=== PATIENT | female | born 1945 | race Caucasian/White ===

== ENCOUNTER 2018-09-08 14:14 | Inpatient (IN) | payer OTHER ==
[~2018-09-08] VITALS: Ht 165.1 cm; Wt 137.9 kg
--- NOTE | 2018-09-08 15:40 | NUR ---
1430: Admitted to room 519-B via [facility] by EMT transport. Pt alert, oriented x3, tearful but pleasant and cooperative, initial admission assessment completed. Welcome packet, consents and policy and procedures reviewed with pt, consents signed. Personal inventory completed and verified with pt. (Antoine) here, information for four number security code given to , phone number for unit and restrictions for clothing, visiting and items to be kept with pt. took pts blue purse with contents home with him per pts request. VS=97.5-94-18, 151/74, O2SAT 98% on RA. See admission process interventions for assessment. Dr. Orellana here to see pt and complete admission assessment.
[2018-09-08 16:05] VITALS: BP 151/74
[2018-09-08] MEDS ORDERED: TYLENOL EXTRA500 MG PO (16:40)
[2018-09-08] MEDS ORDERED: ALBUTEROL2.5 MG/0.5 INH (16:44)
[2018-09-08] MEDS ORDERED: ALPRAZOLAM 0.0.25 M1 PO (16:47)
[2018-09-08] MEDS ORDERED: BISOPROLOL FUMAR5 MG PO ×2 (16:48→17:10)
[2018-09-08] MEDS ORDERED: CETIRIZINE-PSE1 EACH PO (16:49)
[2018-09-08] MEDS ORDERED: SYNTHROID50 MCG PO (16:51)
[2018-09-08] MEDS ORDERED: LISINOPRIL5 MG PO ×2 (16:52→17:12)
[2018-09-08] MEDS ORDERED: METFORMIN HCL500 MG PO (16:53)
[2018-09-08] MEDS ORDERED: ZOFRAN 4 MG ORAL4 MG SUBLING (16:56)
[2018-09-08] MEDS ORDERED: MIRALAX17 GM PO (17:01)
[2018-09-08] MEDS ORDERED: XANAX 0.25 MG0.25 MG PO (17:06)
[2018-09-08] MEDS ORDERED: ZYRTEC10 M5 PO (17:11)
[2018-09-08] MEDS ORDERED: ONDANSETRON HCL4 M2 SUBLING (17:14)
[2018-09-08 19:20] VITALS: BP 133/78
--- NOTE | 2018-09-09 01:04 | NUR ---
Care assumed of patient at 1900: Patient pleasant and cooperative. Patient tearful when speaking about her granddaughter and missing her. States that she is the reason she did not attempt to commit suicide. Denies SI at this time. Reports that she does feel depressed and wants to feel better. Patient reports that she takes Metformin 1,000mg po BID at home. LOGAN Torrez, notified. Order obtained to correct admin instructions. Patient blood sugar 195 this PM and required 3 units Lispro. Patient very worried about her blood sugars, stating that she had never checked her blood sugar before and only took po medication. Education completed on diabetes. Patient is to have HgbA1C drawn this AM. Assured patient that we would have more answers in the AM regarding diabetes care plan for her. Patient is currently sitting in recliner in her room. States that she sleeps in recliner at home and would sleep better in recliner.
[2018-09-09 05:28] LABS: HEMATOCRIT 33.9 % (37.0-47.0); HEMOGLOBIN 11.1 gm/dL (12.0-15.0); MCH 29.2 pg (26.0-34.0); MCHC 32.8 g/dL (28.0-37.0); MCV 89.1 fL (80.0-100.0); RBC 3.81 mil/uL (4.20-5.00); RDW 14.4 % (10.5-14.5)
[2018-09-09 05:42] LABS: CALCIUM 9.7 mg/dL (8.5-10.1); CREATININE 1.2 mg/dL (0.6-1.0); POTASSIUM 4.3 mmol/L (3.5-5.1)
[2018-09-09 07:48] VITALS: BP 111/63
--- NOTE | 2018-09-09 07:50 | NUR ---
0700: Report rec from noc shift, care assume. 0745: Up ad gregg in room, independent with ADL's and toileting. Denies SI, pleasant with staff, tearful at times, attempts to be positive.
[2018-09-09 20:12] VITALS: BP 108/59
--- NOTE | 2018-09-09 20:32 | NUR ---
ASSUMED CARE @ 1900. IN DAY ROOM SITTING AT TABLE WATCHING TV AND OBSERVING PEERS AND STAFF. A&OX4. TSH LABS RETURNED 4.415 AND LEVOTHYROXINE INCREASED TO 75MCG. FSBS 115 @ 19:16, NO SLIDING SCALE INSULIN REQUIRED. AMABULATES AD TACHO WITH CANE. PLEASANT AFFECT, DENIES BACK PAIN AT THIS TIME, REPORTS PAIN IS MORE PRONOUNCED IN THE A.M. WILL CONTINUE TO MONITOR.
--- NOTE | 2018-09-09 23:39 | NUR ---
DENIES NEED OR DESIRE FOR ATIVAN FOR ANXIETY. RECLINED IN CHAIR TO SLEEP. WILL CONTINUE TO MONITOR Q 12 MINUTES FOR PATIENT SAFETY.
[2018-09-10 00:10] LABS: GLYCOHEMOGLOBIN (HGB A1C) 7.8 % (4.8-5.6)
[2018-09-10 07:00] VITALS: BP 105/51
--- NOTE | 2018-09-10 07:55 | NUR ---
PT UP IN DINNING ROOM WITH CANE. PT HAS SMALL BRUISE TO RT FORARM. PT LUNGS CEAR. PT COMPLAINS OF SMALL AMOUNT OF PAIN TO LOWER BACK WHEN GETTING UP OUT OF BED. PT ASKING ALOT OF QUESTIONS ABOUT WHEN IS SHE GOING TO SEE THE DR, AND WHEN IS SHE GOING HOME.
[2018-09-10 08:00] VITALS: BP 105/51
--- NOTE | 2018-09-10 10:07 | H ---
[facility] [place] [address] [place] [address] HISTORY AND PHYSICAL Name: RADHA HAYDEN Room #: 519B-B ADM IN M.R.#: [id number] Admission: 09/08/18 ������������������ Attend Phys: Gabriel Orellana DO Discharge: ������������������ Date of : 45 Report #: [id number] THIS REPORT FOR: //name// CC: [facility] DATE OF SERVICE: 09/08/2018 INPATIENT PSYCHIATRIC EVALUATION PRIMARY TEAM ATTENDING PHYSICIAN: Gabriel Orellana DO TOOL DISPATCHER: Elen Love M.D. REASON FOR ADMISSION: Suicidal ideation with intent, means, and plan. HISTORY OF PRESENT ILLNESS: This is a 73-year-old morbidly obese female who was brought by EMS to the [facility] Emergency Room. Apparently, her primary care physician called 911 due to her calling in with the concern that the patient was going to harm herself. The patient reported in the Emergency Room that she had thoughts of overdosing on her pain medications, stated that they were sure to kill her. She has had suicidal thoughts for the past 3 weeks. She stated she has felt more depressed and suicidal during that time. She acknowledged to me when I interviewed her roughly a month to month and a half ago that she had the passing of her brother. In addition, the patient currently has marital problems. She describes her as coming home, wanting to sit in the chair and go to sleep and not spend significant time with her. She states they have been for 25 years, it is the second marriage for her. The patient states as well she is estranged from her 2 daughters. She told the ER she needed people to leave her alone so she could take her meds and then it will be over with. Apparently, she took an overdose in the past, was hospitalized at [facility], and she told me this was roughly in 2004. Apparently, she is not taking antidepressants currently and it is not having any kind of outpatient psychiatric followup. She reports she cannot sleep at night and sleeps a total of about 4 hours per day. She eats but does not have a good appetite. She has chronic back, abdominal, and leg pain, including a gross hernia in her abdomen that she says cannot be operated on. She denied HI. Denies auditory, visual, or tactile hallucinations. Denied substance use. PAST MEDICAL HISTORY: Includes abdominal hernia, chronic abdominal pain, back and leg pain, and obesity. PAST SURGICAL HISTORY: Numerous, including back and abdomen, will not go further into that. [address] [address] HISTORY AND PHYSICAL Name: RADHA HAYDEN Room #: 519B-B ADM IN M.R.#: [id number] Admission: 09/08/18 ������������������ Attend Phys: Gabriel Orellana DO Discharge: ������������������ Date of : 45 Report #: [id number] SOCIAL HISTORY: Tobacco never used. Never smoked. Alcohol use denies. Denies sexual activity. FAMILY HISTORY: Includes in her father heart failure, asthma, heart attack, I am 15 myocardial infarctions in total, and total diabetes in her father. Diabetes in her sister. I believe her father has dementia, senile. Has another sister with hypertension. A sister with a cancer of the colon. High cholesterol in sister. High cholesterol in brother. Depression in brother. ALLERGIES: CODEINE ANAPHYLAXIS AND ITCHING, HYDROCODONE CAUSED RASH AND BLISTERS, MORPHINE ANAPHYLACTIC SHOCK, OXYCODONE BURNING RASH, DILAUDID AND HYDROMORPHONE CAUSES THE BOWELS TO BACK WITH IMPACTION, LIPITOR MUSCLE PAIN, ZETIA MUSCLE PAIN, LYRICA SWELLING, AMOXICILLIN STOMACH UPSET, NAUSEA, AND VOMITING. DEVELOPMENTAL HISTORY: Born and raised in [place], [place]. Started having kids around age 17. Completed high school and 1 year of college. PRIMARY CARE PHYSICIAN: Dr. Radha Garcia LABORATORY DATA: From [facility] includes a TSH of 7.42, it was 3.4 on 06/16/2008. Salicylate negative. Acetaminophen negative. Alcohol negative. All drug and toxic levels were negative. AST 14, ALT 15, alk phos 90. At , sodium 134, potassium 4.5, chloride 100, bicarbonate 25, anion gap 9, BUN 17, creatinine 0.99, GFR non- 55, glucose 187, albumin 2.6, calcium 9.8, total bilirubin 0.4, total protein 6.9. CBC: White count of 7.7, H and H 12.0 and 37.1, platelet count 310,000. PAST SURGICAL HISTORY: Includes a hysterectomy in 1975, appendectomy in 1975, carpal tunnel release in 1995, cholecystectomy in 1984, back surgery L2-L5 laminectomy at [facility] in 12/2001, joint placement of right knee in 2004, nerve damage back surgery in 2006 at L4-L5, knee arthroplasty 03/25/2016 the was done by Dr. Enzo Mascorro at , breast cyst excision right, history of dilation and curettage x3. Medical history is reviewed. The patient has a history of left posterior fossa meningioma that has not been resected at all, chronic renal failure stage 3, , chronic renal insufficiency, depression, diabetes mellitus, degenerative joint disease, environmental allergies. She has palpitations controlled by metoprolol, abdominal hernia from cholecystectomy incision, hypertension, hyperlipidemia, low back pain, metabolic syndrome, history of pneumonia, history of SVT on beta brendan, sees Dr. Eduardo, vision decreased corrective glasses, and also arthritis. OBJECTIVE: VITAL SIGNS: Additionally, vital signs here at [facility], [facility] [address] [place] [address] HISTORY AND PHYSICAL Name: RADHA HAYDEN Room #: 519B-B ADM IN M.R.#: [id number] Admission: 09/08/18 ������������������ Attend Phys: Gabriel Orellana, Discharge: ������������������ Date of : 45 Report #: [id number] temperature 36.4, pulse 94, respirations 18, BP 151/74, O2 sat 98% on room air. GENERAL: She uses a cane to ambulate. MENTAL STATUS EXAMINATION: This is a well-developed, well-nourished, morbidly obese female appearing her stated age. Attention intact. Concentration intact. Speech is normal in rate, volume and tone. Thought process linear and goal directed. Thought content focused on her current problems. No psychomotor agitation. No psychomotor retardation. Denied auditory, visual, or tactile hallucination. Endorsed suicidal ideation, plan, and intent. Denied homicidal ideation. Memory formally tested, but could not remember which medication she is on, I will follow this up when available tomorrow. Insight limited. Judgment limited. Fund of knowledge is average range. FORMULATION: A 73-year-old morbidly obese female being admitted for suicidal ideation. REVIEW OF SYSTEMS: From ER at : CONSTITUTIONAL: Negative. HEAD, EARS, NOSE AND THROAT: Negative. EYES: Negative. RESPIRATORY: Negative. CARDIOVASCULAR: Negative. GASTROINTESTINAL: Negative. ENDOCRINE: Negative. GENITOURINARY: Negative. MUSCULOSKELETAL: Negative. SKIN: Negative. NEUROLOGIC: Negative. PSYCHIATRIC: Reviewed above. Otherwise negative on 10-point review of systems. MEDICATIONS: Also, her outpatient medication list obtained from PCP: Metformin 1000 mg daily, MiraLax 17 grams daily, lisinopril 5 mg p.o. daily, levothyroxine 50 mcg p.o. daily, Zebeta 5 mg p.o. daily, alprazolam 0.25 mg q.6 hours p.r.n. Routine PRNs were given and Tylenol 650 q.6 p.r.n. was ordered for pain. PLAN: Evaluate, stabilize, obtain collateral. I think the patient would likely benefit from an SSRI. I will talk with her in more detail about that tomorrow. Certainly psychotherapy will need to be set up for the patient and we did have a family meeting as marital discord is not helping the situation. ESTIMATED LENGTH OF STAY: 5-10 days. STRENGTHS: She has family, , and a place to live. WEAKNESSES: Multiple medical problems and avoidance of psychiatric care for some time. [address] [address] HISTORY AND PHYSICAL Name: RADHA HAYDEN Room #: 519B-B ADM IN M.R.#: [id number] Admission: 09/08/18 ������������������ Attend Phys: Gabriel Orellana DO Discharge: ������������������ Date of : 45 Report #: [id number] Approximately 45 minutes spent on this case. ��������������������������������������������� <ELECTRONICALLY SIGNED> ���������������������������������������� By: Gabriel Orellana DO ��������������������������������������������� 09/10/18 1007 [id number] Gabriel Orellana DO /nt
--- NOTE | 2018-09-10 11:37 | NUR ---
Nutrition: pt request to see RD for weight loss/morbid obesity. BMI 50. Reports fair appetite and increased weight gain since brother passed 2 months ago. On carb controlled diet, hx DM. BG 115-160. Does not check sugars at home. Takes metformin. Reviewed basic principles for weight loss, pt was not appropriate for further education on diabetic diet. Became upset and frustrated stating she just wanted to go home. Physical activity is limited due to other health problems. Offered assistance in ordering meals, etc-pt refused. PO intake documented 30%/90%/100% of meals yesterday. Was able to obtain food preferences. Place as low risk.
--- NOTE | 2018-09-10 17:52 | NUR ---
CAME TO VISIT TODAY. PT DIDN'T WANT THE TURKEY MEAL, GAVE PT A SANDWICH BOX. PT EXCITED ABOUT GOING HOME TOMMORROW.
[2018-09-10 19:28] VITALS: BP 129/66
--- NOTE | 2018-09-10 22:30 | NUR ---
PT SITTING IN CHAIR IN HER ROOM. PT WAS ASKED ABOUT MORNING GOALS GROUP, SHE STATED SHE DID NOT ATTEND. PT STATED SHE MET HER GOAL TO GO HOME THE PLAN IS FOR TOMORROW. PT STATED HER MOOD HAS IMPROVED, THAT SHE HAS CHANGED HER THINKING RE TRYING TO HARM HERSELF. PT STATED HER BROTHER 6 WKS AGO, SHE IS NOW THE ONLY ONE LEFT AND IS QUESTIONING WHY SHE IS STILL AROUND AND WHAT HER PURPOSE IS. DISCUSSED HOW SHE IS VERY CLOSE TO HER GREAT GRANDCHILDREN AND HOW LOVING AND SMART THEY ARE. PT STATED SHE LIKES CHILDREN AND DISCUSSED WITH BEING A PARA AT A SCHOOL BUT SHE IS LIMITED IN AMBULATION. 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 PT DISCUSSED HAVING RACING THOUGHTS AND NOT HAVING ANY FRIENDS TO REACH OUT TO FOR DISTRACTION. DISCUSSED OUTPATIENT THERAPIST. PT DECLINED HS SNACK.
--- NOTE | 2018-09-11 09:04 | NUR ---
0700: Report rec from noc shift, care assumed. Resting in recliner in room, opens eyes readily to verbal stimuli, oriented x4, skin w/d. 0800: Ambulatory with assist of walker, gait steady. Feeds self a.m. meal, appetite good, takes meds whole w/o difficulty. denies SI, mood is cheerful and hopeful for discharge to home today. Report no need for laxative today, bowel movement x2 on 09/10. 0900: Attending therapy group, full participation observed. Tylenol 650mg po given for back pain, rated @ "6" on 0-10 pain scale.
[2018-09-11 09:09] VITALS: BP 113/56
[2018-09-11] MEDS ORDERED: LEXAPRO 10 MG T10 MG PO (11:15)
[2018-09-11] MEDS ORDERED: MIRALAX17 GM PO (11:15)
[2018-09-11] MEDS ORDERED: SYNTHROID75 MCG PO (11:16)
[2018-09-11] MEDS ORDERED: GLUCOPHAGE1000 MG PO (11:16)
--- NOTE | 2018-09-11 11:20 | NUR ---
PSYCHOSOCIAL ASSESSMENT Diagnosis: UNSPECIFIED DEPRESSIVE DISORDER Admit Date: 09/08/18 Psychiatrist: TWIN Symptoms associated with current admission: Violence/aggression Anxiety/panic Depressed mood Activity level change Labile mood/vikram Others Presenting problems: Pt was suicidal in mention that she does not feel like living. Precipitating Factors: Non-compliance psychothx Lack of social support Relationship problems Comments: pt stated that her is aggressive, and causing marital problems. Pt stated that she is not suicidal ideation. History of High Risk Behavors: Hx of self harm Suicide Risk Factors: B A-Signs of alcohol/substance abuse w/ suicide ideation B-Recent suicidal thoughts or attempts C-Recent thoughts or attempts of harming someone else D-Altered mental status due to psychiatric/chem dep etiology E-The behavior exists - add comment PSYCHIATRIC HISTORY Age of onset: 73 Prior hospitalizations: 1-2 times hospitalized Hospital names and dates, if available: [facility] 2004 Most Recent Outpatient HX: Denies prior OP services Additional information: Legal Status: Voluntary Guardian/Conservatorship type: Contact name: Contact phone: Other: Name: Phone: Other legal issues: (Arrests/convictions Current Status) None P.O. Name and Phone #: FAMILY HISTORY Place of : [place], [place] Raised in: [place] # Siblings & order: Pt had 6 sibilings, middle Describe relationships within family of origin: Pt had sisters, brothers was close, and loss all of them through . Pt mention stated her youngest brother 2 moths ago from cancer. Any psychiatric or substance abuse problems within family of origin: Y Has patient been sexually or physically abused, neglected or been taken advantage of financially? N Has the abuse been reported? N Other pertinent family information: Marital history/significant relationships: Domestic violence: N Children ages & who is caring for them: Pt had two adult children, who are not active in her life. Is child welfare involved? N Drug history: None Alcohol Use: Frequency: Quantity: Have you ever felt you ought to Cut down on drinking? Have people Annoyed you by criticizing your drinking? Have you ever felt bad or Guilty about your drinking? Have you ever had a drink first thing in the morning to steady your nerves/get rid of a hangover(Eye web marketing specialist) CAGE TOTAL 0 If CAGE score is 3 or more, notify provider for withdrawal orders! AXIS SCREENING TOOL Bartlett I Mood Disorders: Depression Bartlett II Personality/Mental Retardation: Bartlett III Medical Impairment: A-fib Constipation DM HTN Hyperlipidemia Hypothyroidism Bartlett IV Problem(s) with: Primary support group Health care services Other psych/environ prob Bartlett V: 40-Major impairment Additional Bartlett comments: PERSONAL BACKGROUND Relevant cultural issues (ethnicity, values, beliefs, spiritual): Not Spiritual Adventist: Importance of scientologist to patient: Unmet spiritual needs What hobbies/interests does the patient have? [employer] on [employer] Sexual orientation (relevant impact to current treatment): Heterosexual : Where did you serve: Branch of service: Rank: Discharge status: Are you a combat ? Occupational/Work: Do you work? N Do you want to work? N How many hours do you work/week? 0 How many jobs have you had in the past 5 years? 0 Do you need assistance finding a job? N Does the patient need assistance in job training? N Source of income: SSI Does patient have a Payee? Payee name: Approximate monthly income: 1500 Does patient have adequate funds for next 30 days? Y Education background: Some college Highest grade completed: 12th grade Other Educational/training programs: Functional deficits: Yes, see explain Explain functional deficits: Time Management Self Concept Current living situation: House/apartment Address/phone where pt. is living: Pt lives at home with her Does the patient plan to continue there after DC? Yes Patient lives with: Spouse Will family/significant other be involved in treatment? Other community support services utilized: Pt will need a [facility] program Support System Available (family/friend) Name: Phone: Relationship: Name: Phone: Relationship: Name: Phone: Relationship: Patient strengths: Motivated Insight Community support Patient's assets: Verbal Good self care Patient's weaknesses: Chronic hx mental illness Health problems Additional weaknesses: Pt will need to have continuance care with psychiatrist, and therapist. Patient's perception of current certified social workers in health care/case management needs: Pt stated that CM advocate for there healthcare. PRELIMINARY DISCHARGE PLAN Discharge plan/Community resource contacts: Pt will d/c home with Discharge needs: Pt will need a psychiatrist and therapist. Problems anticipated on discharge: Compliance w/ med regimen Comments: (factors affecting DC plan/pt. response/interventions) SW will assist with scheduling appointmet with Php.
--- NOTE | 2018-09-11 11:28 | NUR ---
SW schedule pt appointment with Dusty Oakley for intensive outpatient treatment. Pt appointment is schedule on September 14, 2018 at 1:00pm.
[2018-09-11 11:35] VITALS: BP 113/56
--- NOTE | 2018-09-11 13:01 | NUR ---
Patient Name: RADHA HAYDEN Admission Date: 09/08/18 DISCHARGE PLAN: Pt will be d/c home with her . Care Assessment: Pt was assessed by Dr. Orellana, and diagnosed with Major Depression. Level II Assessment: None Transportation: Pt will be transported by her . Special Instructions/Notes: Pt will need Php program for continuance care. DISCHARGE TO FACILITY: Facility: Phone: Fax: Address: Contact Name: Phone: PCP: LILIYA Psychiatrist: Sulaiman Oakley on September 14, 2018.
--- NOTE | 2018-09-13 12:06 | D ---
[facility] [place] [address] DISCHARGE SUMMARY Name: RADHA HAYDEN Room #: 519B-B DIS IN M.R.#: [id number] Admission: 09/08/18 ������������������ Attend Phys: Gabriel Orellana DO Discharge: 09/11/18 ������������������ Date of : 45 Report #: [id number] THIS REPORT FOR: //name// CC: Gabriel Orellana [facility] DATE OF SERVICE: 09/11/2018 INPATIENT PSYCHIATRIC DISCHARGE SUMMARY ATTENDING PSYCHIATRIST: Gabriel Orellana DO. EMPLOYEE DEVELOPMENT SPECIALIST: Elen Love M.D. 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 Medical comorbidities include morbid obesity, diabetes mellitus type 2, controlled with oral hypoglycemics, chronic kidney disease, hypothyroidism, chronic abdominal wall hernia, lower extremity edema. Her Synthroid dose was adjusted this admission. She will need primary care followup in approximately 2 weeks' time. She is discharged home. Lives with her and they are having marital problems, but they would like to work on reconciling those, particularly communication. The patient has an intake appointment [facility] for their PHP Program on 09/14/2018. DIET: She is on 1800 calorie diabetic diet. DISCHARGE MEDICATIONS: Escitalopram 10 mg p.o. daily for depression, 30-day Rx given; polyethylene glycol 17 g p.o. daily p.r.n.; Metformin 1000 mg tablet twice a day with meals; Levothyroxine 75 mcg p.o. daily at 0700. She should continue Zofran 4 mg p.r.n. for nausea, lisinopril 5 mg p.o. daily for hypertension, renal protection; and bisoprolol fumarate 5 mg p.o. daily for hypertension. She can continue though I did not prescribe her 0.25 mg p.o. q. 6h. p.r.n. of alprazolam. The patient can use albuterol metered dose inhalers or nebulizers q. 4 hours p.r.n. for shortness of breath. LABORATORY DATA: On this admission, CBC: H and H 11.1 and 33.9, white count 7.0, and platelet count 334. Chemistries showed, well, her glucose ran roughly from the 120s to 190s, last glucose recorded was 123 at 11:54 on 09/10/2018, that was after breakfast. REASON FOR ADMISSION: The patient was sent from [facility], brought in with suicidal intent, depression, to overdose on pills and end her life. [address] [address] DISCHARGE SUMMARY Name: RADHA HAYDEN Room #: 519B-B [facility] IN M.R.#: [id number] Admission: 09/08/18 ������������������ Attend Phys: Gabriel Orellana DO Discharge: 09/11/18 ������������������ Date of : 45 Report #: [id number] HOSPITAL COURSE: [facility] She was initially resistant to number of therapeutic efforts including physical therapy. It was explained to the patient the benefit of wellness, improved condition. She presently has been largely a prisoner in her own hoem and car because she is using a single-point cane and had poor gait abilityand endurance. She feels that her just comes home and does not want to interact with her. I have recommended that the patient stay until Friday as myself and the social sciences instructor had to leave earlier today. There is a family meeting with to discuss after a month's time or so options for pursuing couples counseling and utilizing "Fighting for my marriage." However, the patient wanted to be discharged prior to the weekend. She does not meet involuntary criteria. The patient denied SI and HI on the day of discharge. Vital signs on the day of discharge are as follows: Temperature 36.5, pulse 81, respirations 15, and BP 133/56. MSE assisted gait with a cane, spent a lot of time in chair, quite obese with some disability of ventral hernia. This is a well-developed, borderline super morbid obese appearing female. Attention intact. Concentration intact. Speech is normal in rate, volume, and tone. Thought process linear and goal directed. Thought content focused on discharge. No psychomotor agitation. No psychomotor retardation. No auditory, visual, or tactile hallucinations. Denied suicidal intent or plan. Denies homicidal intent or plan. Memory formally tested, Of not one SLUMS she did well with score 28/30. I think the first full day of admission. Prognosis for this patient is fair, as she pursues psychotherapy and Wellness measures to improve herself. Otherwise, she is likely to continue with episodic suicidality and quite symptomatic major depression. ��������������������������������������������� <ELECTRONICALLY SIGNED> ���������������������������������������� By: Gabriel Orellana DO ��������������������������������������������� 09/13/18 1206 25 Gabriel Orellana DO /nt
== END 2018-09-11 16:55 | disposition home or self-care (01) | DRG 885 ==
LOC: SBH
PROVIDERS: Internal Medicine; ADMIT Psychiatry & Neurology Psychiatry
DX: F32.2 Major depressive disorder, single episode, severe without psychotic features (principal); R45.851 Suicidal ideations; Z68.43 Body mass index [BMI] 50.0-59.9, adult; G89.29 Other chronic pain; R10.9 Unspecified abdominal pain; Z96.659 Presence of unspecified artificial knee joint; E66.01 Morbid (severe) obesity due to excess calories; E03.9 Hypothyroidism, unspecified; N18.9 Chronic kidney disease, unspecified; F68.8 Other specified disorders of adult personality and behavior; E11.22 Type 2 diabetes mellitus with diabetic chronic kidney disease; Z88.6 Allergy status to analgesic agent; Z88.1 Allergy status to other antibiotic agents; Z88.8 Allergy status to other drugs, medicaments and biological substances; Z90.710 Acquired absence of both cervix and uterus; Z90.49 Acquired absence of other specified parts of digestive tract; Z79.899 Other long term (current) drug therapy
CPT/HCPCS: 10880